=== PATIENT | female | born 1980 | race Caucasian/White ===

== ENCOUNTER 2021-05-14 04:52 | Emergency (ER) | payer BC ==
[~2021-05-14] VITALS: Ht 154.9 cm; Wt 73.0 kg
[2021-05-14 05:49] VITALS: BP 141/96
[2021-05-14] MEDS ORDERED: ONDANSETRON 4MG ODT PO STA (05:49)
[2021-05-14] MEDS ORDERED: MAGNESIUM/ALUMINUM HYDROXIDE/SIMETHICONE 30ML UDC PO STA (05:49)
[2021-05-14] MEDS ORDERED: HYDROCODONE/ACETAMINOPHEN 5/325MG TABLET PO STA (05:49)
[2021-05-14 07:07] LABS: BASOPHILS % 0.1 % (0.0-2.0); EOSINOPHILS % 2.7 % (0.0-5.0); HEMATOCRIT. 45.4 % (36.0-48.0); HEMOGLOBIN. 15.3 g/dL (12.0-16.0); LYMPHOCYTES % 14.8 % (20.0-50.0); MEAN CORPUSCULAR HEMOGLOBIN 30.1 pg (28.0-32.0); MEAN CORPUSCULAR VOLUME 89.2 fL (81.0-99.0); MEAN PLATELET VOLUME 8.6 fl (7.4-10.4); MONOCYTES % 8.9 % (2.0-8.0); NEUTROPHILS % 73.5 % (40.0-76.0); PLATELET 162 x1000/uL (130-400); RED BLOOD CELL COUNT 5.09 mill/uL (4.2-5.4); RED CELL DISTRIBUTION WIDTH 13.6 % (11.6-14.6)
[2021-05-14 07:10] LABS: CHLORIDE 111 mEq/L (98-107)
[2021-05-14] MEDS ORDERED: DICYCLOMINE 10 MG/5 ML ORAL SYR PO STA (07:20)
[2021-05-14 07:23] LABS: CLARITY URINE CLEAR (CLEAR); COLOR URINE ORANGE (YELLOW); KETONES URINE NEGATIVE (NEGATIVE); LEUKOCYTE ESTERASE URINE 2+ (NEGATIVE); NITRITE URINE NEGATIVE (NEGATIVE); OCCULT BLOOD URINE TRACE (NEGATIVE); PH URINE 5.5 (4.5-8.0); PROTEIN URINE NEGATIVE (NEGATIVE); UROBILINOGEN URINE 0.2 E.U./dL (0.2-1.0)
[2021-05-14 08:12] LABS: HCG SCREEN NEGATIVE
[2021-05-14] MEDS ORDERED: FAMO-135 MT (08:49)
[2021-05-14] MEDS ORDERED: ONDA4TAB5 MT (08:49)
[2021-05-14] MEDS ORDERED: CEPH500C2 MT (08:49)
== END 2021-05-14 09:04 | disposition home or self-care (01) ==
LOC: ER 04:52
DX: N39.0 Urinary tract infection, site not specified (principal); E78.00 Pure hypercholesterolemia, unspecified
CPT/HCPCS: 36415; 76705; 80053; 81003; 81025; 83690; 84703; 85025; 99284; A4217; Q0162